=== PATIENT | female | born 1945 | race Two or more races ===

== ENCOUNTER 2022-11-03 14:55 | Emergency (ER) | payer MEDICARE ==
[~2022-11-03] VITALS: Ht 154.9 cm; Wt 52.6 kg
[2022-11-03] MEDS ORDERED: ATORVASTATIN CA20 MG PO (15:21)
[2022-11-03] MEDS ORDERED: AMLODIPINE BESY10 MG PO (15:21)
[2022-11-03] MEDS ORDERED: GLIPIZIDE ER5 MG PO (15:21)
[2022-11-03] MEDS ORDERED: METFORMIN HCL500 M2 PO (15:21)
[2022-11-03] MEDS ORDERED: SERTRALINE HCL50 MG PO (15:21)
[2022-11-03] MEDS ORDERED: TRULICITY0.75 MG/0. (15:21)
[2022-11-03] MEDS ORDERED: TRAMADOL HCL 50 MG TAB PO STA (15:27)
[2022-11-03] MEDS ORDERED: TRAMADOL HCL 50 MG TAB ONE (15:46)
[2022-11-03] MEDS ORDERED: ULTRAM 50MG50 MG PO (16:20)
== END 2022-11-03 16:20 | disposition home or self-care (01) ==
LOC: FSED 15:01
DX: S01.81XA Laceration without foreign body of other part of head, initial encounter (principal); W22.09XA Striking against other stationary object, initial encounter; Y92.89 Other specified places as the place of occurrence of the external cause
CPT/HCPCS: 70450; 72125; 99283